=== PATIENT | male | born 1950 | race Caucasian/White ===

== ENCOUNTER 2017-08-04 12:41 | Inpatient (IN) | payer MEDICARE ==
[~2017-08-04] VITALS: Ht 175.3 cm; Wt 79.4 kg
[2017-08-04] MEDS ORDERED: Cefepime HCl 2 GM in NS 110 ML IV STA (13:08)
[2017-08-04] MEDS ORDERED: Albuterol ud Inhalation HHN ONE (13:15)
[2017-08-04] MEDS ORDERED: Ipratropium 0.02% Inh Soln 2.5ml UD HHN ONE (13:15)
[2017-08-04] MEDS ORDERED: Vancomycin 1 GM in NS 275 ML IV ONE (13:15)
[2017-08-04 14:01] LABS: HEMATOCRIT 35.4 % (42.0-52.0); HEMOGLOBIN 11.9 G/DL (14.2-18.0); MEAN CORPUSCULAR VOLUME 84 FL (80-99); PLATELET COUNT 362 K/UL (150-450); RED BLOOD COUNT 4.23 M/UL (4.70-6.10); RED CELL DISTRIBUTION WIDTH 13.3 % (11.6-14.8); WHITE BLOOD COUNT 8.5 K/UL (4.8-10.8)
[2017-08-04 14:05] LABS: APPEARANCE,URINE CLEAR; BILIRUBIN, URINE 1+ (NEGATIVE); GLUCOSE, URINE (UA) NEGATIVE (NEGATIVE); KETONES,URINE NEGATIVE (NEGATIVE); LEUKOCYTE ESTERASE ,URINE 2+ (NEGATIVE); NITRITE,URINE NEGATIVE (NEGATIVE); PH,URINE 5 (4.5-8.0); PROTEIN,URINE 3+ (NEGATIVE); UROBILINOGEN,URINE 8 MG/DL (0.0-1.0)
[2017-08-04 14:10] LABS: COLOR,URINE YELLOW
[2017-08-04] MEDS ORDERED: Cefepime 2gm ONE (14:10)
[2017-08-04 14:16] LABS: ANION GAP 15 mmol/L (5-15); BLOOD UREA NITROGEN 33 mg/dL (7-18); CALCIUM 8.9 MG/DL (8.5-10.1); CARBON DIOXIDE 24 MMOL/L (21-32); CHLORIDE 91 MMOL/L (98-107); CREATININE 1.8 MG/DL (0.55-1.30); POTASSIUM 3.3 MMOL/L (3.5-5.1); SODIUM 130 MMOL/L (136-145)
[2017-08-04] MEDS ORDERED: Dexamethasone 4mg/ml vial IVP ONE (14:30)
[2017-08-04] MEDS ORDERED: Dexamethasone 20mg/5ml IVP ONE (14:30)
[2017-08-04 14:35] LABS: ALANINE AMINOTRANSFERASE 610 U/L (12-78); ALBUMIN 2.2 G/DL (3.4-5.0); ALBUMIN/GLOBULIN RATIO 0.4 (1.0-2.7); ALKALINE PHOSPHATASE 230 U/L (46-116); ASPARTATE AMINO TRANSFERASE 293 U/L (15-37); BILIRUBIN,TOTAL 0.4 MG/DL (0.2-1.0); CREATINE KINASE 7929 U/L (26-308)
--- NOTE | 2017-08-04 14:39 | Emergency Room Report ---
History of Present Illness General Chief Complaint: Altered Level of Consciousness Source: Family Member, EMS, Caregiver Present Illness HPI Patient was recently discharged from [facility]. He was undergoing chemotherapy for tumors in his brain. Apparently he fell yesterday. He told caregivers that he was on the ground with his head in the closet most of the night. He refused to go to the hospital at that time. When they checked on him today he was weaker with some decreased level of consciousness. Caregivers called EMS to transport the patient. Paramedics report [facility] 364 OX1. No LAPPs recorded. The patient is unable to give a history at this time. Paramedics found with resp distress. Also had O2 sat 88%. Allergies: Coded Allergies: No Known Allergies (Unverified , 08/04/17) Patient History Limited by: medical condition Past Medical History: see triage record Past Surgical History: other - portacath Social History: Denies: smoking Social History Narrative at home by himself Reviewed Nursing Documentation: PMH: Agreed, PSxH: Agreed Nursing Documentation-PMH Past Medical History: No History, Except For Hx Cancer: Yes - CANCER BRAIN Review of Systems All Other Systems: limited Physical Exam Vital Signs Date Time Temp Pulse Resp B/P (MAP) Pulse Ox O2 Delivery O2 Flow Rate FiO2 08/04/17 12:41 80 20 155/65 95 Non-Rebreather 15.0 Sp02 EP Interpretation: reviewed, abnormal - interpreted as low by me General Appearance: lethargic, Stupor Head: normocephalic Eyes: bilateral eye normal inspection, bilateral eye PERRL, bilateral eye other - eyes closed ENT: moist mucus membranes Neck: supple Respiratory: crackles, rhonchi Cardiovascular #1: regular rate, rhythm Cardiovascular #2: 2+ radial (R) Gastrointestinal: normal inspection, non tender, no mass, non-distended, decreased bowel sounds Genitourinary: normal inspection Musculoskeletal: back normal Neurologic: motor weakness - R weakness, sensory deficit, Babinski - L, R unresponsive, other - minimal responsiveness to pain, flaccid bilat. + gag Psychiatric: other - stupor Skin: normal inspection, warm/dry Procedures Critical Care Time Critical Care Time Total Critical Care Time: 45 min bedside evaluation and treatment excludes procedures (EKG). Reason for critical care: hypoxia, resp distress deteriorating neurologic status with determination of level care Possible complications: hypotension, hypertension, AL, shock, arrhythmias, metabolic acidosis, end organ damage, respiratory failure. Interventions: repeated evaluations, discussion family, decadron, treatment of hypotension and pneumonia Course: Patient presents with AMS post fall with hypoxia. Evaluation for sepsis with fluid hydration and initiation of antibiotics. CT without lesions or bleed, but deterioration of neurologic status. Decadron given. Discussion with family regarding level of care and review of advanced directives. Discussion and exam with admitting MD. Consultations: nursing staff, EMS, family, PMD, radiologist Performed by: Dr. Dolan Tolerated well condition = guarded/critical Medical Decision Making Diagnostic Impression: Primary Impression: Pneumonia Qualified Codes: J18.1 - Lobar pneumonia, unspecified organism Additional Impressions: Brain cancer Qualified Codes: C71.9 - Malignant neoplasm of brain, unspecified Diffuse large B cell lymphoma Qualified Codes: C83.30 - Diffuse large B-cell lymphoma, unspecified site Right hemiparesis ER Course Patient has a history of brain cancer post fall with altered mentation. Differential is broad including brain bleed, subdural, exacerbation of metastases, electrolyte imbalance, sepsis amongst others. Based on the patient' s physical exam there is high clinical suspicion for pneumonia. The patient will be evaluated for sepsis with a cultures and labs including lactic acid. In addition to that a chest x-ray EKG and CT of the head will be performed. Based on the possibility of brain metastases a dose of Decadron be given in the emergency department here. R weakness, unable to determine last known well time. Not candidate for TPA due to co-morbidities and unknown LKWT. CT without lesions. CXR - nodule and RML infiltrate - portacath. WBC normal. Still less responsive. BP low - fluid bolus given. Patient now with posturing R hand. Discussion with family regarding intubation - they state he did not want intubation. They realize he is sick and might . Nature of rapid deterioration unclear. Examined with Dr. Carson. Laboratory Tests Test 08/04/17 13:30 08/04/17 16:30 08/04/17 18:15 08/04/17 19:40 White Blood Count 8.5 K/UL (4.8-10.8) Red Blood Count 4.23 M/UL (4.70-6.10) L Hemoglobin 11.9 G/DL (14.2-18.0) L Hematocrit 35.4 % (42.0-52.0) L Mean Corpuscular Volume 84 FL (80-99) Mean Corpuscular Hemoglobin 28.2 PG (27.0-31.0) Mean Corpuscular Hemoglobin Concent 33.7 G/DL (32.0-36.0) Red Cell Distribution Width 13.3 % (11.6-14.8) Platelet Count 362 K/UL (150-450) Mean Platelet Volume 7.1 FL (6.5-10.1) Neutrophils (%) (Auto) % (45.0-75.0) Lymphocytes (%) (Auto) % (20.0-45.0) Monocytes (%) (Auto) % (1.0-10.0) Eosinophils (%) (Auto) % (0.0-3.0) Basophils (%) (Auto) % (0.0-2.0) Differential Total Cells Counted 100 Neutrophils % (Manual) 83 % (45-75) H Lymphocytes % (Manual) 3 % (20-45) L Monocytes % (Manual) 7 % (1-10) Eosinophils % (Manual) 0 % (0-3) Basophils % (Manual) 0 % (0-2) Band Neutrophils 7 % (0-8) Platelet Estimate Adequate Platelet Morphology Normal Hypochromasia 1+ Prothrombin Time 10.2 SEC (9.30-11.50) Prothrombin Time INR 1.0 (0.9-1.1) PTT 25 SEC (23-33) Urine Color Yellow Urine Appearance Clear Urine pH 5 (4.5-8.0) Urine Specific [place] 1.025 (1.005-1.035) Urine Protein 3+ (NEGATIVE) H Urine Glucose (UA) Negative (NEGATIVE) Urine Ketones Negative (NEGATIVE) Urine Occult Blood 5+ (NEGATIVE) H Urine Nitrite Negative (NEGATIVE) Urine Bilirubin 1+ (NEGATIVE) H Urine Ictotest Negative Urine Urobilinogen 8 MG/DL (0.0-1.0) H Urine Leukocyte Esterase 2+ (NEGATIVE) H Urine RBC 2-4 /HPF (0 - 0) H Urine WBC 15-20 /HPF (0 - 0) H Urine Squamous Epithelial Cells Occasional /LPF Urine Bacteria Moderate /HPF (NONE) H Sodium Level 130 MMOL/L (136-145) L Potassium Level 3.3 MMOL/L (3.5-5.1) L Chloride Level 91 MMOL/L (98-107) L Carbon Dioxide Level 24 MMOL/L (21-32) Anion Gap 15 mmol/L (5-15) Blood Urea Nitrogen 33 mg/dL (7-18) H Creatinine 1.8 MG/DL (0.55-1.30) H Estimate Glomerular Filtration Rate 37.6 mL/min (>60) Glucose Level 148 MG/DL (74-106) H Lactic Acid Level 3.10 mmol/L (0.66-2.22) H 3.50 mmol/L (0.66-2.22) H Calcium Level 8.9 MG/DL (8.5-10.1) Total Bilirubin 0.4 MG/DL (0.2-1.0) Aspartate Amino Transferase (AST) 293 U/L (15-37) H Alanine Aminotransferase (ALT) 610 U/L (12-78) H Alkaline Phosphatase 230 U/L (46-116) H Total Creatine Kinase 7929 U/L (26-308) H Troponin I 0.000 ng/mL (0.000-0.056) Pro-B-Type Natriuretic Peptide 299 pg/mL (0-125) H Total Protein 7.5 G/DL (6.4-8.2) Albumin 2.2 G/DL (3.4-5.0) L Globulin 5.3 g/dL Albumin/Globulin Ratio 0.4 (1.0-2.7) L Urine Opiates Screen Negative (NEGATIVE) Urine Barbiturates Screen Negative (NEGATIVE) Phencyclidine (PCP) Screen Negative (NEGATIVE) Urine Amphetamines Screen Negative (NEGATIVE) Urine Benzodiazepines Screen Negative (NEGATIVE) Urine Cocaine Screen Negative (NEGATIVE) Urine Marijuana (THC) Screen Negative (NEGATIVE) Phosphorus Level 5.5 MG/DL (2.5-4.9) H C-Reactive Protein, Quantitative 11.6 mg/dL (0.00-0.90) H Vitamin B12 Level 3830 PG/ML (193-986) H Microbiology Date/Time Source Procedure Growth Status 08/04/17 13:30 Nasal Nares Influenza Types A,B Antigen (LYNNE) - Final Complete EKG Diagnostic Results Rate: normal Rhythm: NSR ST Segments: no acute changes - LVH Rhythm Strip Diag. Results EP Interpretation: yes Rhythm: NSR, no PVC's, no ectopy Chest X-Ray Diagnostic Results Chest X-Ray Diagnostic Results : Chest X-Ray Ordered: Yes # of Views/Limited/Complete: 1 View Indication: Other Interpretation: no effusion, no pneumothorax, other - portacath and infiltrate RML Impression: Other Electronically Signed by: Electronically signed by Rohan Dolan MD CT/MRI/US Diagnostic Results CT/MRI/US Diagnostic Results : Imaging Test Ordered: head Impression Impression: Negative for acute intracranial bleed or mass effect Chronic and age-related changes, as described Fairly extensive bilateral mastoid disease Status: worsened Disposition: ADMITTED INPATIENT Condition: Critical Referrals: NON PHYSICIAN (PCP) Rohan Dolan M.D. Aug 04, 2017 14:39
--- NOTE | 2017-08-04 15:05 | Diagnostic Imaging Report ---
Indications: Altered mental status Technique: Spiral acquisitions obtained through the brain. Angled axial and coronal 5 x 5 mm slices were reconstructed. Total dose length product 1548.51 mGycm. CTDI vol(s) 70.38 mGy. Dose reduction achieved using automated exposure control Comparison: None. Findings: There is image degradation due to motion artifact. Per technologist, patient has involuntary twitching and shaking No acute intracranial hemorrhage or edema. No mass effect or midline shift. There is marked age-related enlargement of the ventricles and extra axial CSF spaces. There is periventricular deep white matter low-attenuation consistent with chronic ischemic change. There is minimal sphenoid sinus disease. The calvarium is intact. There is extensive bilateral mastoid opacification Impression: Negative for acute intracranial bleed or mass effect Chronic and age-related changes, as described Fairly extensive bilateral mastoid disease The CT scanner at [facility] is accredited by the [employer] and the scans are performed using protocols designed to limit radiation exposure to as low as reasonably achievable to attain images of sufficient resolution adequate for diagnostic evaluation.
[2017-08-04 15:34] VITALS: BP 98/76
[2017-08-04] MEDS ORDERED: OMEPRAZOLE20 M2 ORAL (15:52)
[2017-08-04] MEDS ORDERED: CLARITIN-D 241 EACH PO (15:52)
[2017-08-04] MEDS ORDERED: AMLODIPINE BESY10 MG ORAL (15:52)
[2017-08-04] MEDS ORDERED: LISINOPRIL5 MG ORAL (15:52)
[2017-08-04] MEDS ORDERED: AMOXICILLI250 MG/5 M ORAL (15:52)
[2017-08-04] MEDS ORDERED: POLYETHYLENE GL17 GM ORAL (15:52)
[2017-08-04] MEDS ORDERED: MEDROL DOSEPAK4 MG ORAL (15:52)
[2017-08-04] MEDS ORDERED: ALLOPURINOL300 M1 ORAL (15:52)
[2017-08-04] MEDS ORDERED: FLUTICASONE PRO16 G1 NASAL (15:52)
[2017-08-04] MEDS ORDERED: HIBICLENS118 ML TP (15:52)
[2017-08-04] MEDS ORDERED: Mylanta II UD 30ml ORAL PRN (16:00)
[2017-08-04] MEDS ORDERED: Miralax 17gm pkt ORAL PRN (16:00)
[2017-08-04] MEDS ORDERED: Nitroglycerin Subl 0.4mg tab SL PRN (16:00)
[2017-08-04] MEDS ORDERED: Promethazine/Codeine 5ml UD ORAL PRN (16:00)
[2017-08-04] MEDS ORDERED: Albuterol/Ipratropium 3ml neb HHN PRN (16:00)
--- NOTE | 2017-08-04 16:02 | Diagnostic Imaging Report ---
Indication: Shortness of breath Technique: One view of the chest Comparison: none Findings: There is some atelectasis and possibly minimal consolidation at the right lung base. There is a nodular opacity at the right medial lung base which is possibly calcified. The lungs and pleural spaces are otherwise clear. The heart size is normal. Aorta is elongated. There is a right arm port catheter. Impression: Right basilar atelectasis and possibly minimal consolidation. No definite acute process otherwise Right medial basilar lung nodule. Per discussion with referring physician, patient has known history of lung carcinoma Right arm port catheter
--- NOTE | 2017-08-04 16:04 | History and Physical ---
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 Pt recently admitted at [facility] 07/19- 07/26 during which time he was initiated with chemo per heme/onc (got R-EPOCH). Pt also underwent CT neck/chest/abd/pelvis which showed large lee mass in nasopharynx w/ nasopharyngeal and oropharyngeal airway compromised, bulky LAD in L supraclavicular region. PET showed hypermetabolism in head and neck extending to skull base and into b/l carotid canals and jugular foramina. Pt completed chemo and was discharged home. Per [id number] who is DPOA pt lives alone. In the past 2 days he has been noted to be weaker. She found pt on floor after a fall. He refused to go to hospital. He was again on floor today and she talked him into going to hospital. Pt was awake, minimally verbal when she saw him. No reports of fc, n/v, d/c, chest pain, SOB, abd pain. In ED, pt became hypotensive to SBP 70s and given 1L NS bolus x 2. Labs showed hyponatremia, CARA w/ SCr 1.8, elevated LFTs, elevated CK which was concerning for rhabdomyolysis. Pt underwent CT head which was neg for acute abnormality. Pt noted to be increasingly altered. INitially he was mumbling some words, but now he is non-verbal. MRI brain and MRA head/neck ordered. CXR w/ concern for R lung consolidation. Pt given vanco and cefepime. Allergies: Coded Allergies: No Known Allergies (Unverified , 08/04/17) Medication History Scheduled Allopurinol* (Allopurinol*), 300 MG ORAL DAILY, (Reported) Amlodipine Besylate* (Amlodipine Besylate*), 10 MG ORAL DAILY, (Reported) Amoxicillin* (Amoxicillin*), 500 MG ORAL EVERY 8 HOURS, (Reported) Fluticasone Propionate* (Fluticasone Propionate*), 1 SPRAY NASAL DAILY, ( Reported) Lisinopril (Lisinopril*), 5 MG ORAL DAILY, (Reported) Loratadine/Pseudoephedrine (Claritin-D 24 Hour Tablet), 1 TAB PO DAILY, ( Reported) Methylprednisolone (Methylprednisolone*), 4 MG ORAL .as directed, (Reported) Omeprazole (Omeprazole), 20 MG ORAL DAILY, (Reported) Polyethylene Glycol 3350* (Polyethylene Glycol 3350*), 17 GM ORAL DAILY, ( Reported) Miscellaneous Medications Chlorhexidine Gluconate* (Hibiclens*), 118 ML TP, (Reported) Patient History History Provided By: Patient, Family Member, Medical Record Healthcare decision maker Resuscitation status Advanced Directive on File Past Medical/Surgical History Past Medical/Surgical History: (1) Diffuse large B cell lymphoma (2) HTN (hypertension) (3) GERD (gastroesophageal reflux disease) Social History Social History: (1) Lives alone with help available Review of Systems ROS Narrative Unable to obtain ROS as pt w/ AMS, non-verbal Physical Exam Physical Exam Narrative General: alert, cooperative, no distress, appears stated age, pale, unresponsive to voice and sternal rub Head: normocephalic, without obvious abnormality, atraumatic Eyes: conjunctivae/corneas clear. PERRL, EOM's intact Throat: lips, mucosa, and tongue normal. MMM Neck: supple, symmetrical, trachea midline, and no JVD Lungs: clear to auscultation bilaterally Heart: regular rate and rhythm, S1, S2 normal, no murmur, click, rub or gallop Abdomen: soft, non-tender, non-distended, bowel sounds normal Extremities: extremities normal, atraumatic, no cyanosis or edema Pulses: 2+ and symmetric Skin: skin color, texture, turgor normal; no rashes or lesions Neurologic: L gaze preference, some facial asymmetry, +RUE hemiapresis, L am and L leg rigidity, decreased DTRs b/l, +Babinski on R side, no response to pin stimulation Last 24 Hour Vital Signs Date Time Temp Pulse Resp B/P (MAP) Pulse Ox O2 Delivery O2 Flow Rate FiO2 08/04/17 15:34 97.8 90 25 98/76 94 Room Air 08/04/17 14:36 93 22 99 Room Air 08/04/17 14:08 82 19 89 Room Air 08/04/17 13:40 89 22 Room Air 08/04/17 12:41 80 20 155/65 95 Non-Rebreather 15.0 Laboratory Tests Test 08/04/17 13:30 White Blood Count 8.5 K/UL (4.8-10.8) Red Blood Count 4.23 M/UL (4.70-6.10) L Hemoglobin 11.9 G/DL (14.2-18.0) L Hematocrit 35.4 % (42.0-52.0) L Mean Corpuscular Volume 84 FL (80-99) Mean Corpuscular Hemoglobin 28.2 PG (27.0-31.0) Mean Corpuscular Hemoglobin Concent 33.7 G/DL (32.0-36.0) Red Cell Distribution Width 13.3 % (11.6-14.8) Platelet Count 362 K/UL (150-450) Mean Platelet Volume 7.1 FL (6.5-10.1) Neutrophils (%) (Auto) % (45.0-75.0) Lymphocytes (%) (Auto) % (20.0-45.0) Monocytes (%) (Auto) % (1.0-10.0) Eosinophils (%) (Auto) % (0.0-3.0) Basophils (%) (Auto) % (0.0-2.0) Differential Total Cells Counted 100 Neutrophils % (Manual) 83 % (45-75) H Lymphocytes % (Manual) 3 % (20-45) L Monocytes % (Manual) 7 % (1-10) Eosinophils % (Manual) 0 % (0-3) Basophils % (Manual) 0 % (0-2) Band Neutrophils 7 % (0-8) Platelet Estimate Adequate Platelet Morphology Normal Hypochromasia 1+ Prothrombin Time 10.2 SEC (9.30-11.50) Prothromb Time International Ratio 1.0 (0.9-1.1) Activated Partial Thromboplast Time 25 SEC (23-33) Urine Color Yellow Urine Appearance Clear Urine pH 5 (4.5-8.0) Urine Specific [place] 1.025 (1.005-1.035) Urine Protein 3+ (NEGATIVE) H Urine Glucose (UA) Negative (NEGATIVE) Urine Ketones Negative (NEGATIVE) Urine Occult Blood 5+ (NEGATIVE) H Urine Nitrite Negative (NEGATIVE) Urine Bilirubin 1+ (NEGATIVE) H Urine Ictotest Negative Urine Urobilinogen 8 MG/DL (0.0-1.0) H Urine Leukocyte Esterase 2+ (NEGATIVE) H Urine RBC 2-4 /HPF (0 - 0) H Urine WBC 15-20 /HPF (0 - 0) H Urine Squamous Epithelial Cells Occasional /LPF Urine Bacteria Moderate /HPF (NONE) H Sodium Level 130 MMOL/L (136-145) L Potassium Level 3.3 MMOL/L (3.5-5.1) L Chloride Level 91 MMOL/L (98-107) L Carbon Dioxide Level 24 MMOL/L (21-32) Anion Gap 15 mmol/L (5-15) Blood Urea Nitrogen 33 mg/dL (7-18) H Creatinine 1.8 MG/DL (0.55-1.30) H Estimat Glomerular Filtration Rate 37.6 mL/min (>60) Glucose Level 148 MG/DL (74-106) H Lactic Acid Level 3.10 mmol/L (0.66-2.22) H Calcium Level 8.9 MG/DL (8.5-10.1) Total Bilirubin 0.4 MG/DL (0.2-1.0) Aspartate Amino Transf (AST/SGOT) 293 U/L (15-37) H Alanine Aminotransferase (ALT/SGPT) 610 U/L (12-78) H Alkaline Phosphatase 230 U/L (46-116) H Total Creatine Kinase 7929 U/L (26-308) H Troponin I 0.000 ng/mL (0.000-0.056) Pro-B-Type Natriuretic Peptide 299 pg/mL (0-125) H Total Protein 7.5 G/DL (6.4-8.2) Albumin 2.2 G/DL (3.4-5.0) L Globulin 5.3 g/dL Albumin/Globulin Ratio 0.4 (1.0-2.7) L Microbiology Date/Time Source Procedure Growth Status 08/04/17 13:30 Nasal Nares Influenza Types A,B Antigen (LYNNE) - Final Complete Height (Feet): 5 Height (Inches): 10.00 Weight (Pounds): 175 Medications Current Medications Medications (Trade) Dose Ordered Sig/Mona Route PRN Reason Start Time Stop Time Status Last Admin Dose Admin Acetaminophen (Tylenol) 650 mg Q4H PRN ORAL fever (temp>100.5F) 08/04/17 16:00 09/03/17 15:59 Al Hydroxide/Mg Hydroxide (Mylanta II) 30 ml Q6H PRN ORAL dyspepsia 08/04/17 16:00 09/03/17 15:59 Albuterol/ Ipratropium (Albuterol/ Ipratropium) 3 ml Q4H PRN HHN Shortness of Breath 08/04/17 16:00 08/09/17 15:59 Cefepime HCl 1 gm/ Dextrose 55 ml @ 110 mls/hr EVERY 12 HOURS IV 08/04/17 21:00 08/11/17 20:59 UNV Heparin Sodium (Porcine) (Heparin 5000 units/ml) 5,000 units EVERY 12 HOURS SUBQ 08/04/17 21:00 09/03/17 20:59 UNV Nitroglycerin (Ntg) 0.4 mg Q5M PRN SL Prn Chest Pain 08/04/17 16:00 09/03/17 15:59 Ondansetron HCl (Zofran) 4 mg Q6H PRN IVP Nausea & Vomiting 08/04/17 16:00 09/03/17 15:59 Polyethylene Glycol (Miralax) 17 gm DAILYPRN PRN ORAL Constipation 08/04/17 16:00 09/03/17 15:59 Promethazine HCl/ Codeine (Phenergan with Codeine) 5 ml Q4H PRN ORAL For Cough 08/04/17 16:00 09/03/17 15:59 Temazepam (Restoril) 15 mg HSPRN PRN ORAL Insomnia 08/04/17 16:00 08/11/17 15:59 Vancomycin HCl (Vanco rx to dose) 1 ea DAILY PRN MISC Per rx protocol 08/04/17 16:00 09/03/17 15:59 UNV Assessment/Plan Problem List: (1) Acute encephalopathy ICD Codes: G93.40 - Encephalopathy, unspecified SNOMED: 7574383 (2) HCAP (healthcare-associated pneumonia) ICD Codes: J18.9 - Pneumonia, unspecified organism SNOMED: 559463205 (3) Hypotension ICD Codes: I95.9 - Hypotension, unspecified SNOMED: 44194963 (4) Lactic acidosis ICD Codes: E87.2 - Acidosis SNOMED: 00997114 (5) Hyponatremia ICD Codes: E87.1 - Hypo-osmolality and hyponatremia SNOMED: 25640675 (6) CARA (acute kidney injury) ICD Codes: N17.9 - Acute kidney failure, unspecified SNOMED: 82167719 (7) Elevated LFTs ICD Codes: R79.89 - Other specified abnormal findings of blood chemistry SNOMED: 562239300, 907168307 (8) Rhabdomyolysis ICD Codes: M62.82 - Rhabdomyolysis SNOMED: 050305226 (9) Status post fall ICD Codes: Z91.81 - History of falling SNOMED: 347995736 (10) UTI (urinary tract infection) ICD Codes: N39.0 - Urinary tract infection, site not specified SNOMED: 51920762 (11) Diffuse large B cell lymphoma Assessment & Plan: of nasopharynx ICD Codes: C83.30 - Diffuse large B-cell lymphoma, unspecified site SNOMED: 89976120, 872444516 Status: deteriorating Assessment/Plan Admit to tele Neurology consulted High suspicion for acute CVA despite neg CT head. Check MRI brain, MRA head and neck w/o contrast ASA 300mg rectal supp x 1 now Neuro checks q4h Hold home BP meds and allow for permissive hypertension Pulmonology consulted Empiric vanco and cefepime for now F/u cultures Trend lactate Renal consulted mIVFs Trend CMP, CK Pain control, bowel regimen Supportive care DVT Prophylaxis: SCD, HSQ Code Status: DNR/DNI per discussion w/ pts [id number] who is the [facility] Hospital Classification Declaration: Based on this initial evaluation, and depending on the patient's clinical course, I anticipate that this patient will require hospitalization for 2-3 days for AMS, HCAP and close respiratory/ hemodynamic monitoring. Disposition: Once the patient is stable to leave the hospital, I anticipate the patient will likely be discharged to the following environment: home with hospice vs SNF w/ hospice I spent 75 minutes on this patient's case, and >50% was dedicated to counseling and/or care coordination. Discussed with patient/family, nursing staff, SW/CM, renal, pulm, neuro regarding clinical status, treatment course, and disposition planning. Time of note may not reflect time of encounter. Yamileth Basilio M.D. Aug 04, 2017 16:04
[2017-08-04] MEDS ORDERED: Vancomycin 1gm inj IVPB ONE (16:32)
[2017-08-04 17:07] VITALS: BP 126/60
--- NOTE | 2017-08-04 17:11 | Consultation ---
Consult Note Consult Note Asked to eval for renal failure- Patient was recently discharged from [facility]. He was undergoing chemotherapy for tumors in his brain. Apparently he fell yesterday. He told caregivers that he was on the ground with his head in the closet mostly nights. He refused to go to the hospital at that time. Today I he's been weaker with some decreased level of consciousness. Caregivers called EMS to transport the patient. The patient is unable to give a history at this time. Paramedics found with resp distress. Also had O2 sat 88%. Past Surgical History: other - portacath Hx Cancer: Yes - CANCER BRAIN patient non verbal- pale- Hypotensive- examined- discussed with ER nurse data reviewed . Assessment/Plan status: Acute Renal Failure- Rhabdo- Sepsi: High Lactate , Low BP Acute encephalopathy h/o Brain Cancer , s/p Chemo therapy Low NA and Low K Hypoalbuminemia Plan: Stress dose steroids- IV challenge Monitor Ck and LFT and Renal parameters Gastric support NPO for now per orders APOLONIA GRAJEDA Aug 04, 2017 17:11
--- NOTE | 2017-08-04 17:44 | Neurology Progress Note ---
Objective Physical Exam Last Vital Signs Date Time Temp Pulse Resp B/P (MAP) Pulse Ox O2 Delivery O2 Flow Rate FiO2 08/04/17 17:07 98.2 84 19 126/60 92 Room Air 08/04/17 12:41 15.0 Laboratory Tests Test 08/04/17 13:30 08/04/17 16:30 White Blood Count 8.5 K/UL (4.8-10.8) Red Blood Count 4.23 M/UL (4.70-6.10) L Hemoglobin 11.9 G/DL (14.2-18.0) L Hematocrit 35.4 % (42.0-52.0) L Mean Corpuscular Volume 84 FL (80-99) Mean Corpuscular Hemoglobin 28.2 PG (27.0-31.0) Mean Corpuscular Hemoglobin Concent 33.7 G/DL (32.0-36.0) Red Cell Distribution Width 13.3 % (11.6-14.8) Platelet Count 362 K/UL (150-450) Mean Platelet Volume 7.1 FL (6.5-10.1) Neutrophils (%) (Auto) % (45.0-75.0) Lymphocytes (%) (Auto) % (20.0-45.0) Monocytes (%) (Auto) % (1.0-10.0) Eosinophils (%) (Auto) % (0.0-3.0) Basophils (%) (Auto) % (0.0-2.0) Differential Total Cells Counted 100 Neutrophils % (Manual) 83 % (45-75) H Lymphocytes % (Manual) 3 % (20-45) L Monocytes % (Manual) 7 % (1-10) Eosinophils % (Manual) 0 % (0-3) Basophils % (Manual) 0 % (0-2) Band Neutrophils 7 % (0-8) Platelet Estimate Adequate Platelet Morphology Normal Hypochromasia 1+ Prothrombin Time 10.2 SEC (9.30-11.50) Prothromb Time International Ratio 1.0 (0.9-1.1) Activated Partial Thromboplast Time 25 SEC (23-33) Urine Color Yellow Urine Appearance Clear Urine pH 5 (4.5-8.0) Urine Specific [place] 1.025 (1.005-1.035) Urine Protein 3+ (NEGATIVE) H Urine Glucose (UA) Negative (NEGATIVE) Urine Ketones Negative (NEGATIVE) Urine Occult Blood 5+ (NEGATIVE) H Urine Nitrite Negative (NEGATIVE) Urine Bilirubin 1+ (NEGATIVE) H Urine Ictotest Negative Urine Urobilinogen 8 MG/DL (0.0-1.0) H Urine Leukocyte Esterase 2+ (NEGATIVE) H Urine RBC 2-4 /HPF (0 - 0) H Urine WBC 15-20 /HPF (0 - 0) H Urine Squamous Epithelial Cells Occasional /LPF Urine Bacteria Moderate /HPF (NONE) H Sodium Level 130 MMOL/L (136-145) L Potassium Level 3.3 MMOL/L (3.5-5.1) L Chloride Level 91 MMOL/L (98-107) L Carbon Dioxide Level 24 MMOL/L (21-32) Anion Gap 15 mmol/L (5-15) Blood Urea Nitrogen 33 mg/dL (7-18) H Creatinine 1.8 MG/DL (0.55-1.30) H Estimat Glomerular Filtration Rate 37.6 mL/min (>60) Glucose Level 148 MG/DL (74-106) H Lactic Acid Level 3.10 mmol/L (0.66-2.22) H 3.50 mmol/L (0.66-2.22) H Calcium Level 8.9 MG/DL (8.5-10.1) Total Bilirubin 0.4 MG/DL (0.2-1.0) Aspartate Amino Transf (AST/SGOT) 293 U/L (15-37) H Alanine Aminotransferase (ALT/SGPT) 610 U/L (12-78) H Alkaline Phosphatase 230 U/L (46-116) H Total Creatine Kinase 7929 U/L (26-308) H Troponin I 0.000 ng/mL (0.000-0.056) Pro-B-Type Natriuretic Peptide 299 pg/mL (0-125) H Total Protein 7.5 G/DL (6.4-8.2) Albumin 2.2 G/DL (3.4-5.0) L Globulin 5.3 g/dL Albumin/Globulin Ratio 0.4 (1.0-2.7) L Impression/Recommendations Recommendations #[id number] NEGRO ADEN Aug 04, 2017 17:43
[2017-08-04] MEDS ORDERED: Solu-MEDROL 125mg Inj IVP ONE (17:45)
--- NOTE | 2017-08-04 17:51 | Consultation ---
History of Present Illness General Date patient seen: Aug 04, 2017 Chief Complaint: Altered Level of Consciousness right lung pnuemonia Referring physician: Dr. 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 Radiographs taken of the patients chest in the emergency room revealed a questionable lung process in the right lung I was asked to consult from pulmonary and internal medicine point of view. Unfortunantely the patient unable to provide any history at this time, in response to my questions patient simply mumbles incoherently and appears severely disoriented and obtunded. Upon my examination, there does appear to be questionable consolidation of infiltrates in the right lung highly suspicious for a possible aspiration event and pnuemonia. The patient has been initiated on IV antibiotics cefepime and vancomycin for broad coverage and anti- psuedomonal coverage. Allergies: Coded Allergies: No Known Allergies (Unverified , 08/04/17) Medication History Scheduled Allopurinol* (Allopurinol*), 300 MG ORAL DAILY, (Reported) Amlodipine Besylate* (Amlodipine Besylate*), 10 MG ORAL DAILY, (Reported) Amoxicillin* (Amoxicillin*), 500 MG ORAL EVERY 8 HOURS, (Reported) Fluticasone Propionate* (Fluticasone Propionate*), 1 SPRAY NASAL DAILY, ( Reported) Lisinopril (Lisinopril*), 5 MG ORAL DAILY, (Reported) Loratadine/Pseudoephedrine (Claritin-D 24 Hour Tablet), 1 TAB PO DAILY, ( Reported) Methylprednisolone (Methylprednisolone*), 4 MG ORAL .as directed, (Reported) Omeprazole (Omeprazole), 20 MG ORAL DAILY, (Reported) Polyethylene Glycol 3350* (Polyethylene Glycol 3350*), 17 GM ORAL DAILY, ( Reported) Miscellaneous Medications Chlorhexidine Gluconate* (Hibiclens*), 118 ML TP, (Reported) Patient History Healthcare decision maker PAMELA PERKINS Resuscitation status Advanced Directive on File No Past Medical/Surgical History Past Medical/Surgical History: (1) HTN (hypertension) (2) GERD (gastroesophageal reflux disease) (3) Hyponatremia (4) Rhabdomyolysis (5) Elevated LFTs (6) CARA (acute kidney injury) (7) Status post fall (8) Acute encephalopathy (9) HCAP (healthcare-associated pneumonia) (10) UTI (urinary tract infection) (11) Hypotension (12) Lactic acidosis (13) Diffuse large B cell lymphoma Review of Systems Constitutional: Reports: malaise, weakness Respiratory: Reports: cough, sputum Physical Exam General Appearance: confused, mild distress Lines, tubes and drains: peripheral HEENT: normocephalic, atraumatic, anicteric, PERRL Neck: non-tender, normal alignment, supple, normal inspection Respiratory/Chest: chest wall non-tender, accessory muscle use, rhonchi - right Breasts: no masses Cardiovascular/Chest: normal peripheral pulses, normal rate, regular rhythm, no JVD Abdomen: normal bowel sounds, non tender, soft, no organomegaly, no mass Genitourinary/Rectal: normal genital exam, normal rectal exam Extremities: normal range of motion, non-tender, normal inspection, no calf tenderness, normal capillary refill Skin Exam: normal pigmentation, warm/dry Neurologic: disoriented, unresponsiveness Last 24 Hour Vital Signs Date Time Temp Pulse Resp B/P (MAP) Pulse Ox O2 Delivery O2 Flow Rate FiO2 08/04/17 17:07 98.2 84 19 126/60 92 Room Air 08/04/17 15:34 97.8 90 25 98/76 94 Room Air 08/04/17 14:36 93 22 99 Room Air 08/04/17 14:08 82 19 89 Room Air 08/04/17 13:40 89 22 Room Air 08/04/17 12:41 80 20 155/65 95 Non-Rebreather 15.0 Laboratory Tests Test 08/04/17 13:30 08/04/17 16:30 White Blood Count 8.5 K/UL (4.8-10.8) Red Blood Count 4.23 M/UL (4.70-6.10) L Hemoglobin 11.9 G/DL (14.2-18.0) L Hematocrit 35.4 % (42.0-52.0) L Mean Corpuscular Volume 84 FL (80-99) Mean Corpuscular Hemoglobin 28.2 PG (27.0-31.0) Mean Corpuscular Hemoglobin Concent 33.7 G/DL (32.0-36.0) Red Cell Distribution Width 13.3 % (11.6-14.8) Platelet Count 362 K/UL (150-450) Mean Platelet Volume 7.1 FL (6.5-10.1) Neutrophils (%) (Auto) % (45.0-75.0) Lymphocytes (%) (Auto) % (20.0-45.0) Monocytes (%) (Auto) % (1.0-10.0) Eosinophils (%) (Auto) % (0.0-3.0) Basophils (%) (Auto) % (0.0-2.0) Differential Total Cells Counted 100 Neutrophils % (Manual) 83 % (45-75) H Lymphocytes % (Manual) 3 % (20-45) L Monocytes % (Manual) 7 % (1-10) Eosinophils % (Manual) 0 % (0-3) Basophils % (Manual) 0 % (0-2) Band Neutrophils 7 % (0-8) Platelet Estimate Adequate Platelet Morphology Normal Hypochromasia 1+ Prothrombin Time 10.2 SEC (9.30-11.50) Prothromb Time International Ratio 1.0 (0.9-1.1) Activated Partial Thromboplast Time 25 SEC (23-33) Urine Color Yellow Urine Appearance Clear Urine pH 5 (4.5-8.0) Urine Specific [place] 1.025 (1.005-1.035) Urine Protein 3+ (NEGATIVE) H Urine Glucose (UA) Negative (NEGATIVE) Urine Ketones Negative (NEGATIVE) Urine Occult Blood 5+ (NEGATIVE) H Urine Nitrite Negative (NEGATIVE) Urine Bilirubin 1+ (NEGATIVE) H Urine Ictotest Negative Urine Urobilinogen 8 MG/DL (0.0-1.0) H Urine Leukocyte Esterase 2+ (NEGATIVE) H Urine RBC 2-4 /HPF (0 - 0) H Urine WBC 15-20 /HPF (0 - 0) H Urine Squamous Epithelial Cells Occasional /LPF Urine Bacteria Moderate /HPF (NONE) H Sodium Level 130 MMOL/L (136-145) L Potassium Level 3.3 MMOL/L (3.5-5.1) L Chloride Level 91 MMOL/L (98-107) L Carbon Dioxide Level 24 MMOL/L (21-32) Anion Gap 15 mmol/L (5-15) Blood Urea Nitrogen 33 mg/dL (7-18) H Creatinine 1.8 MG/DL (0.55-1.30) H Estimat Glomerular Filtration Rate 37.6 mL/min (>60) Glucose Level 148 MG/DL (74-106) H Lactic Acid Level 3.10 mmol/L (0.66-2.22) H 3.50 mmol/L (0.66-2.22) H Calcium Level 8.9 MG/DL (8.5-10.1) Total Bilirubin 0.4 MG/DL (0.2-1.0) Aspartate Amino Transf (AST/SGOT) 293 U/L (15-37) H Alanine Aminotransferase (ALT/SGPT) 610 U/L (12-78) H Alkaline Phosphatase 230 U/L (46-116) H Total Creatine Kinase 7929 U/L (26-308) H Troponin I 0.000 ng/mL (0.000-0.056) Pro-B-Type Natriuretic Peptide 299 pg/mL (0-125) H Total Protein 7.5 G/DL (6.4-8.2) Albumin 2.2 G/DL (3.4-5.0) L Globulin 5.3 g/dL Albumin/Globulin Ratio 0.4 (1.0-2.7) L Microbiology Date/Time Source Procedure Growth Status 08/04/17 13:30 Nasal Nares Influenza Types A,B Antigen (LYNNE) - Final Complete Height (Feet): 5 Height (Inches): 10.00 Weight (Pounds): 175 Medications Current Medications Medications (Trade) Dose Ordered Sig/Mona Route PRN Reason Start Time Stop Time Status Last Admin Dose Admin Acetaminophen (Tylenol) 650 mg Q4H PRN ORAL fever (temp>100.5F) 08/04/17 16:00 09/03/17 15:59 Albuterol/ Ipratropium (Albuterol/ Ipratropium) 3 ml Q4H PRN HHN Shortness of Breath 08/04/17 16:00 08/09/17 15:59 Cefepime HCl 1 gm/ Sodium Chloride 55 ml @ 110 mls/hr Q24H IV 08/05/17 14:00 08/12/17 13:59 Heparin Sodium (Porcine) (Heparin 5000 units/ml) 5,000 units EVERY 12 HOURS SUBQ 08/04/17 21:00 09/03/17 20:59 Hydrocortisone (Solu-CORTEF) 100 mg EVERY 8 HOURS IV 08/04/17 22:00 09/03/17 21:59 Nitroglycerin (Ntg) 0.4 mg Q5M PRN SL Prn Chest Pain 08/04/17 16:00 09/03/17 15:59 Ondansetron HCl (Zofran) 4 mg Q6H PRN IVP Nausea & Vomiting 08/04/17 16:00 09/03/17 15:59 Pantoprazole (Protonix) 40 mg EVERY 12 HOURS IVP 08/04/17 21:00 09/03/17 20:59 Polyethylene Glycol (Miralax) 17 gm DAILYPRN PRN ORAL Constipation 08/04/17 16:00 09/03/17 15:59 Promethazine HCl/ Codeine (Phenergan with Codeine) 5 ml Q4H PRN ORAL For Cough 08/04/17 16:00 09/03/17 15:59 Sodium Chloride 1,000 ml @ 125 mls/hr Q8H IV 08/04/17 17:30 09/03/17 17:29 08/04/17 17:18 Vancomycin HCl (Vanco rx to dose) 1 ea DAILY PRN MISC Per rx protocol 08/04/17 16:00 09/03/17 15:59 Vancomycin HCl 1 gm/Dextrose 275 ml @ 183.708 mls/hr Q24H IVPB 08/05/17 16:00 08/10/17 15:59 Assessment/Plan Status: stable, progressing Assessment/Plan Aspiration pnuemonia Sepsis Altered mental status 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
[2017-08-04 20:00] VITALS: BP 109/71
[2017-08-04 20:42] LABS: PHOSPHORUS 5.5 MG/DL (2.5-4.9)
[2017-08-04] MEDS ORDERED: Heparin 5000 units/ml inj SUBQ SCH (21:00)
[2017-08-04] MEDS ORDERED: Pantoprazole Inj IVP SCH (21:00)
[2017-08-04] MEDS ORDERED: Hydrocortisone 100mg Inj IV SCH (22:00)
--- NOTE | 2017-08-04 22:32 | Consultation ---
DATE OF CONSULTATION: 08/04/2017 NEUROLOGICAL CONSULTATION LOCATION: Emergency room. CONSULTING PHYSICIAN: Douglas Clark M.D. REQUESTING PHYSICIAN: Hellen Mcleod M.D. HISTORY OF PRESENT ILLNESS: This is a 67-year-old man, seen in neurological consultation to evaluate new onset of progressive unresponsiveness. As the patient was unable to provide with any history, this was complied from medical records and my conversation with attending and nursing staff. 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 A PET scan reportedly revealed multiple areas of metastases and this included carotid system. The patient underwent chemotherapy in June 2017 completing on 07/26/2017. The patient was discharged home. He lives alone, but for the last couple of days, he was apparently not responding. Caregiver came in and found him on the ground. At that time, he was able to respond telling that he is refusing to go to the hospital, but symptoms were progressing and becoming less responsive, this, he was brought to the emergency room. On admission, blood pressure 155/65. While under observation, the patient was markedly hypotensive, required fluid replacement. His initial diagnostic studies included included a CT scan of the brain, which was negative for any acute intracranial abnormality. There were significant chronic age-related changes and extensive bilateral mastoid disease. Chest x-ray, right basilar atelectasis, possible minimal consolidation, right medial basilar lung nodule. His initial lab studies included electrolyte panel with sodium 130, potassium 3.3, elevated BUN of 33, creatinine 1.8, and blood sugar 138. Lactic acid of 3.10. Elevated AST 293, ALT 610 and CPK of 7929, but normal troponin. BNP 299. CBC study with hemoglobin 11.9 and hematocrit 35.4. Upon arrival to the emergency room, the patient was able to mumble, but later appears stopped being verbal. EKG with normal sinus rhythm. No PVCs. MEDICATIONS: Treatment prior to admission include allopurinol, amlodipine, amoxicillin, lisinopril, loratadine, methylprednisone 4 mg, and omeprazole. ALLERGIES: None reported. SOCIAL HISTORY: He is single. He is now DNR. No evidence of drug abuse. FAMILY HISTORY: Unavailable. REVIEW OF SYMPTOMS: Unable to obtain due to patient's status. PHYSICAL EXAMINATION: GENERAL: This is a well-developed, well-nourished, but pale and somewhat ill-appearing man, not in acute distress, lying comfortably in bed. VITAL SIGNS: His blood pressure 126/60 and afebrile. HEENT: Head, normocephalic. No evidence of trauma. Eyes, ears, and throat are clear. NECK: Rigid in all directions. There is slight right torticollis. MUSCULOSKELETAL: Unremarkable. There are no deformities. Peripheral pulses 1+ and symmetric. MENTAL STATUS: The patient is unresponsive to voice and on sternal rub briefly opens eyes, but does not follow command. CRANIAL NERVE II: Pupils 2 mm responding to light and accommodation. There is a strong left gaze preference. CRANIAL NERVE V: Normal corneal responses. CRANIAL NERVE VII: Mild facial asymmetry. CRANIAL NERVE VIII: Unable to test. CRANIAL NERVE IX THROUGH XII: Reduced gag response. MOTOR EXAMINATION: Flaccid right upper extremity. Rigidity in left arm and left leg. Deep tendon reflexes depressed bilaterally. Positive Babinski on the right. SENSORY EXAM: No response to pin stimulation. IMPRESSION: 1. Acute onset of right hemiplegia with left gaze preference, suggestive of ischemic left middle cerebral artery distribution stroke. 2. Metastatic large B-cell deon/nasopharyngeal malignancy. 3. Pneumonia. 4. Hypertension. DISCUSSION: The patient appears to have new onset of right hemiplegia with left gaze deviation. This is a new finding when compared with the previous few days ago at [facility]. In addition, the patient developed hepatorenal syndrome with elevated liver function, abnormal renal function, as well as rhabdomyolysis. The patient's condition now critical. MRI of the brain and angiogram of the head and neck was scheduled. The patient to avoid hypotension maintaining proper blood pressure control, systolic above 120 and below 160. Ecotrin 81 mg daily. The patient is on DNR and no intubation is contemplated. We will follow with you. Thank you for allowing me to see this interesting patient in neurological consultation. Douglas Clark M.D. DR: DEBORAH JOB#: [id number] CC:
[2017-08-05] VITALS: BP 104/60
[2017-08-05] MEDS ORDERED: D5 1/2NS 1000ml IV ONE (03:04)
--- NOTE | 2017-08-05 10:23 | Discharge Summary ---
Discharge Summary Hospital Course Date of Admission Aug 04, 2017 at 13:59 Date of Discharge Aug 05, 2017 at 03:05 (pt ) Admitting Diagnosis PNEUMONIA Reason for Hospitalization: Acute encephalopathy Pneumonia, CARA HPI 67y/o male with pmh of HTN, DLBCL of nasopharynx (diagnosed by biopsy on November 2016, on chemotherapy) who presents with AMS. Pt recently admitted at [facility] 07/19- 07/26 during which time he was initiated with chemo per heme/onc (got R-EPOCH). Pt also underwent CT neck/chest/abd/pelvis which showed large lee mass in nasopharynx w/ nasopharyngeal and oropharyngeal airway compromised, bulky LAD in L supraclavicular region. PET showed hypermetabolism in head and neck extending to skull base and into b/l carotid canals and jugular foramina. Pt completed chemo and was discharged home. Per [id number] who is DPOA pt lives alone. In the past 2 days he has been noted to be weaker. She found pt on floor after a fall. He refused to go to hospital. He was again on floor today and she talked him into going to hospital. Pt was awake, minimally verbal when she saw him. No reports of fc, n/v, d/c, chest pain, SOB, abd pain. In ED, pt became hypotensive to SBP 70s and given 1L NS bolus x 2. Labs showed hyponatremia, CARA w/ SCr 1.8, elevated LFTs, elevated CK which was concerning for rhabdomyolysis. Pt underwent CT head which was neg for acute abnormality. Pt noted to be increasingly altered. Initially he was mumbling some words, but now he is non-verbal. MRI brain and MRA head/neck ordered. CXR w/ concern for R lung consolidation. Pt given vanco and cefepime. Consultations Neurology, Nephrology Hospital Course Pt was admitted to tele. He was continued on broad-spectrum antibiotics. Neurology saw patient and there was high suspicion for acute CVA despite neg CT head. MRI brain and MRA head and neck was done which revealed acute CVA of L frontal and L parietal lobes, and occlusion of the proximal segments of the left internal carotid artery with some reconstitution of the supraclinoid segment. Pt also with CARA with rhabdomyolosis and was placed on IVFs. Per discussion with pt's DPOA [id number] pt was confirmed to be DNR/DNI. On night of admission, pt became progressively bradycardic and had cardiac arrest. He on morning of 08/05/17. physical exam: Heart: no heart sounds Lungs: no breath sounds Neuro: pupils fixed and dilated Discharge diagnoses: Acute Cerebrovascular Accident (CVA) Acute encephalopathy ICD Codes: G93.40 - Encephalopathy, unspecified SNOMED: 8551689 HCAP (healthcare-associated pneumonia) ICD Codes: J18.9 - Pneumonia, unspecified organism SNOMED: 221710352 Hypotension ICD Codes: I95.9 - Hypotension, unspecified SNOMED: 31241012 Lactic acidosis ICD Codes: E87.2 - Acidosis SNOMED: 46673311 Hyponatremia ICD Codes: E87.1 - Hypo-osmolality and hyponatremia SNOMED: 89803559 CARA (acute kidney injury) ICD Codes: N17.9 - Acute kidney failure, unspecified SNOMED: 52810196 Elevated LFTs ICD Codes: R79.89 - Other specified abnormal findings of blood chemistry SNOMED: 331879076, 388286315 Rhabdomyolysis ICD Codes: M62.82 - Rhabdomyolysis SNOMED: 609338444 Status post fall ICD Codes: Z91.81 - History of falling SNOMED: 434368499 UTI (urinary tract infection) ICD Codes: N39.0 - Urinary tract infection, site not specified SNOMED: 90273225 Diffuse large B cell lymphoma Assessment & Plan: of nasopharynx ICD Codes: C83.30 - Diffuse large B-cell lymphoma, unspecified site Discharge Condition Upon Discharge: critical Discharge Disposition Patient was discharged to Discharge Diagnoses: Yamileth Basilio M.D. Aug 05, 2017 10:23
[2017-08-05] MEDS ORDERED: Cefepime HCl 1 GM in NS 55 ML IV SCH (14:00)
--- NOTE | 2017-08-05 14:41 | Diagnostic Imaging Report ---
Indication: Altered mental status Technique: MRI the brain performed utilizing T1 sagittal, T2 axial, T1 FLAIR axial, T2 FLAIR axial, T2*GRE and diffusion axial images without gadolinium. Comparison: CT head from earlier the same day Findings: Exam degraded by patient motion and positioning. There is 3 mm focus of DWI signal intensity with matched dropout on ADC map in the left medullary compatible with acute infarct. Acute infarcts also noted within the left parietal and frontal lobes. Question punctate infarct versus artifact in the left basal ganglia. The sulci, ventricles and cisterns are prominent consistent with atrophy. Periventricular and supratentorial white matter T2 hyperintensity are seen without mass effect. There is no shift of midline structures. No significant extra-axial collections of fluid or blood are demonstrated. Bilateral mastoid opacification. There is mild paranasal sinus disease. There is soft tissue fullness in the nasopharynx/prevertebral region. No depressed calvarial fracture identified. IMPRESSION: Acute infarct involving the left parietal and frontal lobes. Acute infarct of the left medulla. Question punctate lacunar infarct versus artifact in the left basal ganglia. No acute intracranial hemorrhage. Atrophy and sequela of chronic microvascular ischemia. Bilateral mastoid air cell opacification. Soft tissue fullness in the nasopharynx/prevertebral region. This corresponds with the [facility] preliminary report.
--- NOTE | 2017-08-05 14:54 | Diagnostic Imaging Report ---
Indication: Altered mental status Technique: 3-D [id number] of the brain; 3-D reconstructions. Comparison: Correlation made to concurrent MRI of the brain Findings: Motion degraded exam. There is lack of flow related signal in the high cervical, petrous and cavernous segments of the left internal carotid artery. There is some reconstitution in the supraclinoid segments of the left internal carotid artery. There is origin of the right posterior cerebral artery. There is asymmetric decreased caliber of the left middle cerebral artery however the M1, M2 and 3 segments are visualized. Bilateral anterior cerebral and posterior cerebral arteries visualize. Bilateral vertebral arteries patent. IMPRESSION: Occlusion of the proximal segments of the left internal carotid artery with some some reconstitution of the supraclinoid segment. Intact table [place] with slight asymmetric decreased caliber of the left middle cerebral artery and its branches compared to the right. This corresponds with the [facility] preliminary report.
--- NOTE | 2017-08-05 15:11 | Diagnostic Imaging Report ---
Indication: Altered mental status Technique: 3-D [id number] images of the neck; 3-D reconstructions. Comparison: Correlation made to concurrent MRI/MRA of the brain Findings: Exam significantly degraded by patient motion. There is lack of flow related signal in the left internal carotid artery. Right internal carotid artery and bilateral vertebral arteries are patent. IMPRESSION: Significantly degraded by patient motion. Occlusion of the left internal carotid artery. Given motion degradation of MR angiograms of the head and neck, consider CTA for confirmation. This corresponds with the [facility] preliminary report. .
[2017-08-05] MEDS ORDERED: Vancomycin 1gm/D5W 275ml IVPB SCH ×2 (16:00)
--- NOTE | 2017-08-05 17:58 | Cardiology Report ---
APPROVED REPORT EKG Measurement Heart [id number] MA 124P-9 [id number] Normal sinus rhythm Minimal voltage criteria for LVH, may be normal variant Possible septal infarct, age undetermined Nonspecific ST abnormality Abnormal ECG
== END 2017-08-05 03:05 | disposition expired | DRG 64 ==
LOC: EDUNIT# 12:41 → EDBD 12:41 → EDBEDREQ 13:12 → EMR 13:53 → 2E 13:59 → EDBEDREQ 14:36 → EDBEDREQSVC 15:34 → EDBEDREQ 16:35
DX: I63.50 Cerebral infarction due to unspecified occlusion or stenosis of unspecified cerebral artery (principal); K76.7 Hepatorenal syndrome; G93.40 Encephalopathy, unspecified; N17.9 Acute kidney failure, unspecified; J18.9 Pneumonia, unspecified organism; C79.31 Secondary malignant neoplasm of brain; G81.91 Hemiplegia, unspecified affecting right dominant side; C83.30 Diffuse large B-cell lymphoma, unspecified site; C79.89 Secondary malignant neoplasm of other specified sites; M62.82 Rhabdomyolysis; E87.1 Hypo-osmolality and hyponatremia; G81.90 Hemiplegia, unspecified affecting unspecified side; N39.0 Urinary tract infection, site not specified; I95.9 Hypotension, unspecified; C10.9 Malignant neoplasm of oropharynx, unspecified; C11.9 Malignant neoplasm of nasopharynx, unspecified; I10 Essential (primary) hypertension; Z91.81 History of falling; Z66 Do not resuscitate; Z79.899 Other long term (current) drug therapy; K21.9 Gastro-esophageal reflux disease without esophagitis; Z60.2 Problems related to living alone
CPT/HCPCS: 36415; 70450; 70544; 70547; 70551; 71045; 80053; 80307; 81003; 82550; 82607; 83605; 83880; 84100; 84484; 85007; 85025; 85610; 85730; 86140; 86710; 87040; 87070; 87081; 87086; 87181; 87205; 93005; 94640; 99285